=== PATIENT | female | born 2000 | race Caucasian/White ===

== ENCOUNTER 2019-12-14 16:30 | Inpatient (IN) | payer MEDICAID ==
[~2019-12-14] VITALS: Ht 152.4 cm; Wt 47.2 kg
[2019-12-14] MEDS ORDERED: IV NS 0.9% 1,000 ML BAG IV ONE ×2 (17:00→18:30)
--- NOTE | 2019-12-14 17:15 | NUR ---
ABELARDO FROM A [facility] TO ER BED 13. SLEEPING EASILY ARROUSABLLE.COOPERATIVE AND COMPLIANT. NOT IN RESP DISTRESS. BROUGHT IN FOR POSSIBLE OVERDOSE. PER EMS REPORT, PT WAS GIVEN NARCAN 2MG IV, REPORTS WAKING BUT WENT BACK TO SLEEP AGAIN. PT IS NOTED TACHYCARDIC UPON ASSESSMENT. CADEN LY WAS AT THE BEDSIDE FOR EVAL. ORDERS RECEIVED NOTED AND CARRIED OUT. IV LINE ESTABLISHED ON LFA 20G. BLOOD DRAWN AND GIVEN TO CHIEF COOK AT BEDSIDE. URINE COLLECTED AND SENT TO LAB
[2019-12-14 17:17] LABS: BASOPHILS % (AUTO) 0.2 % (0.0-2.0); HEMATOCRIT 46 % (33-45); HEMOGLOBIN 15.3 g/dL (11.5-14.8); LYMPHOCYTES # (AUTO) 1.6 /CMM (0.8-4.8); LYMPHOCYTES % (AUTO) 8.4 % (20.0-44.0); MEAN CORPUSCULAR HGB CONC 33 g/dl (31.0-36.0); MEAN CORPUSCULAR VOLUME 97 fL (82-100); MONOCYTES # (AUTO) 1.8 /CMM (0.1-1.30); MONOCYTES % (AUTO) 9.5 % (2.0-12.0); NEUTROPHILS # (AUTO) 15.2 /CMM (1.8-8.9); NEUTROPHILS % (AUTO) 81.9 % (43.0-81.0); PLATELET COUNT (AUTO) 463 /CMM (150-450); RED BLOOD CELL COUNT(AUTO) 4.75 MIL/uL (4.0-5.2); WHITE BLOOD COUNT (AUTO) 18.6 K/uL (4.3-11.0)
[2019-12-14 17:21] LABS: APPEARANCE,URINE Clear (CLEAR); BILIRUBIN,URINE SMALL (NEGATIVE); BLOOD, URINE Moderate Ery/uL (NEGATIVE); COLOR,URINE Yellow (YELLOW); KETONES,URINE Negative (NEGATIVE); LEUKOCYTE ESTERASE ,URINE Negative (NEGATIVE); NITRITE, URINE Negative (NEGATIVE); PROTEIN,URINE >=300 mg/dl (NEGATIVE); UGLUCOSE Negative (NEGATIVE); UROBILINOGEN,URINE 0.2 EU/dL (0.2)
[2019-12-14 17:55] LABS: ALANINE AMINOTRANSFERASE 29 U/L (12-78); ALKALINE PHOSPHATASE 73 U/L (46-116); ASPARTATE AMINOTRANSFERASE 56 U/L (15-37); BILIRUBIN,DIRECT 0.1 mg/dL (0.0-0.2); BILIRUBIN,TOTAL 0.2 mg/dL (0.2-1.0); CALCIUM, SERUM 8.5 mg/dL (8.5-10.1); CARBON DIOXIDE 22 mmol/L (21-32); CHLORIDE 96 mmol/L (98-107); CREATININE 1.8 mg/dL (0.6-1.3); GLUCOSE 64 mg/dL (74-106); POTASSIUM 5.7 mmol/L (3.5-5.1); SALICYLATE 2.9 mg/dL (2.8-20.0); SODIUM SERUM 133 mmol/L (136-145); TOTAL PROTEIN, SERUM 7.8 g/dL (6.4-8.2); UREA NITROGEN, BLOOD 20 mg/dL (7-18)
[2019-12-14 17:57] LABS: ACETAMINOPHEN < 2 ug/ml (10-30); ALCOHOL, BLOOD < 3 mg/dL (0-0)
[2019-12-14 18:04] LABS: BACTERIA,URINE Few /HPF (None Seen); RBC,URINE 0-2 /HPF (0-2); SQUAMOUS EPITHELIAL CELL,UR Few /HPF (None Seen); URINE AMORPHOUS URATE Many /HPF (None Seen); WBC,URINE 0-2 /HPF (0-3)
--- NOTE | 2019-12-14 18:28 | NUR ---
PT NOTED WITH BP OF 83/65 HR 125 O2 SAT 90% ON RA. CADEN LY MADE AWARE. ORDER RECEIVED TO GIVE ANOTHER LITER OF NS BOLUS X 1. PT ALSO PLACED ON O2 VIA NC @ 2LPM SATTING 98%.
[2019-12-14] MEDS ORDERED: ASPIRIN 325 MG TABLET PO ONE (19:30)
[2019-12-14 19:37] LABS: BAND % (MANUAL) 5 % (0.0-5.0); LYMPHOCYTES % (MANUAL) 7 % (16-48); MONOCYTES % (MANUAL) 11 % (0-11.0); NEUTROPHILS % (MANUAL) 77 (42-76)
[2019-12-14] MEDS ORDERED: ASPIRIN 325 MG TABLET ONE (20:02)
[2019-12-14] MEDS ORDERED: ONDANSETRON HCL/PF 4 MG/2 ML VIAL ONE (20:28)
[2019-12-14] MEDS ORDERED: ONDANSETRON HCL/PF - ER 4 MG/2 ML VIAL IV ONE (20:30)
--- NOTE | 2019-12-14 20:34 | NUR ---
PT HAD X1 EPISODE OF VOMMITING. MODERATE AMOUNT. FOOD CONTENT
[2019-12-14] MEDS ORDERED: ONDANSETRON HCL/PF 4 MG/2 ML VIAL IVP PRN (21:00)
[2019-12-14] MEDS ORDERED: MAG HYDROX/AL HYDROX/SIMETH 30 ML UDC PO PRN (21:00)
[2019-12-14] MEDS ORDERED: IV NS 0.9% 1,000 ML IV PRN (21:00)
[2019-12-14] MEDS ORDERED: Z GUARD REMEDY 2 OZ OINT TP PRN (21:00)
[2019-12-14] MEDS ORDERED: ACETAMINOPHEN 325 MG TABLET PO PRN (21:00)
--- NOTE | 2019-12-14 21:47 | NUR ---
report given to geronimo galan for ludwig.
[2019-12-14 22:00] VITALS: BP 95/78
--- NOTE | 2019-12-14 22:00 | NUR ---
PT TRANSPORTED TO UNIT ON [facility] EMT AND RN AT BEDSIDE W/ ACLS PROTOCOL. NAD NOTED DURING TRANSPORT.
[2019-12-14 22:47] LABS: SERUM AMMONIA 13 umol/L (11-32)
--- NOTE | 2019-12-14 23:03 | NUR ---
MS RN NOTE: Patient lactic acid is 3.3. Made Mary MERINO aware, Benjamín. Per MD, she will order antibiotic. She is just waiting for the procalcitonin result to determine what antibiotic to give. Per , no more IV fluids.
[2019-12-15] VITALS: BP 108/82
[2019-12-15] MEDS ORDERED: IV NS 0.9% 500 ML IV ONE
[2019-12-15] MEDS ORDERED: VANCOMYCIN 1 GM in IV D5W 250ml IV ONE (00:30)
[2019-12-15 00:37] VITALS: BP 95/78
[2019-12-15] MEDS ORDERED: PIPERACILLIN /TAZOBACTAM 3.375 G VIAL IV ONE ×2 (01:31→06:51)
[2019-12-15] MEDS ORDERED: VANCOMYCIN 1 GM VIAL ONE (01:31)
[2019-12-15] MEDS: ZOSYN IVPB 3.375 G in IV D5W 50ml IV SCH ×2 (01:35→06:56)
[2019-12-15 04:00] VITALS: BP 113/78
--- NOTE | 2019-12-15 06:30 | NUR ---
MS RN NOTE: Patient in bed sleeping comfortably. Patient on 2L oxygen via nasal canula. Patient is breathing well and in no apparent respiratory distress, no SOB. Safety precaution is in place, bed is in the lowest level, bed is locked, side rails x2 are up, and call light is within reach. Will Endorse to next shift.
[2019-12-15 07:13] LABS: BASOPHILS % (AUTO) 0.2 % (0.0-2.0); EOSINOPHILS % (AUTO) 0.1 % (0.0-6.0); HEMATOCRIT 39 % (33-45); LYMPHOCYTES # (AUTO) 3.2 /CMM (0.8-4.8); LYMPHOCYTES % (AUTO) 23.7 % (20.0-44.0); MEAN CORPUSCULAR HGB CONC 33 g/dl (31.0-36.0); MEAN CORPUSCULAR VOLUME 96 fL (82-100); MONOCYTES % (AUTO) 7.3 % (2.0-12.0); NEUTROPHILS # (AUTO) 9.3 /CMM (1.8-8.9); NEUTROPHILS % (AUTO) 68.7 % (43.0-81.0); PLATELET COUNT (AUTO) 305 /CMM (150-450); RED BLOOD CELL COUNT(AUTO) 4.07 MIL/uL (4.0-5.2); WHITE BLOOD COUNT (AUTO) 13.6 K/uL (4.3-11.0)
[2019-12-15 07:16] LABS: CALCIUM, SERUM 7.5 mg/dL (8.5-10.1); CREATININE 0.8 mg/dL (0.6-1.3); MAGNESIUM 1.9 mg/dL (1.8-2.4); PHOSPHORUS 3.9 mg/dL (2.5-4.9); POTASSIUM 4.3 mmol/L (3.5-5.1)
--- NOTE | 2019-12-15 07:30 | NUR ---
ms rn received on bed, awake,alert,orientedx3,patient is sleeping most of the time, denies pain at this time, no sob noted,will monitor patient.
[2019-12-15 07:52] LABS: THYROID STIMULATING HORMONE 2.112 uIU/mL (0.358-3.74)
[2019-12-15 08:00] VITALS: BP 111/76
--- NOTE | 2019-12-15 08:30 | NUR ---
ms rn patient asking for food, breakfast ordered amd served, no s/s of swallowing problem.
[2019-12-15] MEDS ORDERED: PANTOPRAZOLE 40 MG VIAL IV SCH (09:00)
[2019-12-15] MEDS ORDERED: ASPIRIN 81 MG TAB.CHEW PO SCH (09:00)
[2019-12-15] MEDS ORDERED: VANCOMYCIN 0.75 GM in IV D5W 250 ML IV SCH (10:00)
--- NOTE | 2019-12-15 11:35 | NUR ---
This SW attempted to meet with the patient. Patient asleep but easily arousable. Patient stated "I don't want to talk to no child welfare social worker". This SW to return at a later day/time to obtain information from this patient.
[2019-12-15 12:00] VITALS: BP 131/89
[2019-12-15] MEDS ORDERED: PIPERACILLIN /TAZOBACTAM 3.375 G in IV D5W 100 ML IV SCH (12:00)
--- NOTE | 2019-12-15 12:00 | NUR ---
ms rn was seen by cindy tamez/ nemo to be discharge today, social services manager was able to spoke w/ her but not cooperating.
[2019-12-15] MEDS ORDERED: LEVO750T21 PO (12:45)
--- NOTE | 2019-12-15 14:38 | NUR ---
This SW met with the patient at bedside. Patient reports "I'm not ready to be discharged." I want to go to a rehab. Patient is being discharged and SW to provide homeless resources in chart as patient "does not want to speak with this SW." Resources provided are: Substance Abuse resources provided included: [facility] Substance Abuse Self-Helpline ([facility]) ; CRI -HELP [address] [facility]. [place] [id number] ; [facility] [address] [facility] [address] ; [facility] [address] [facility] [phone] ; [facility] [address] [facility] [phone] ; [facility] [address] [facility] [address] ; [facility] [address] [facility] [phone] ; [facility] Helpline([facility] ; [facility] ; [facility] [place]; [facility] [place]; [facility] Star remy; [facility] [place]; [facility] [place]; [facility] [place]; [facility], [facility]. [place]; Alcoholics Anonymous -SFV; Dy-Lidh-Rexjnrl ; Marijuana Anonymous -SFV; Narcotics Anonymous www.na.org. Year-round shelters : [facility] [address] [place] [address] ; [facility] [address] [place] [address]; [facility] [address] [facility] [phone] Hygiene: [facility]: [address] [place] ; [facility] [address] [facility] [place] ; [facility] [address] [place] [address] . Food Resources: [place] [facility] at [facility]- [address] [place]; Meet Each Need wit Dignity ([facility]) [address] [facility] [place]; [facility] [place] [facility] [address] [facility]; [facility] [address] [place] [address] [place]. Mental Health resources provided: [facility] [address] [place] [address] ; [facility] [place] [address] [facility] [address], [place] [address] ; Tanika Savage [facility] [address] [place] [address] ; [facility] [address] [place], [place] [phone]
--- NOTE | 2019-12-15 16:00 | NUR ---
ms rn Melissa, case manger and social economist was there to spoke w/ patient, refusing to be discharge, resources available for her.
--- NOTE | 2019-12-15 16:40 | NUR ---
ms rn patient refused to sign discharge papers and refused to take pictures, crying now.
--- NOTE | 2019-12-15 16:45 | NUR ---
ms rn patient discharge crying, dont want to go, discharged patient w/ security, all needs attended, prescription given.
== END 2019-12-15 16:50 | disposition home or self-care (01) | DRG 812 ==
LOC: ER 16:40 → TELE 20:57 → EDBD 20:57
PROVIDERS: ADMIT Registered Nurse; ATTEND Hospitalist
DX: T43.621A Poisoning by amphetamines, accidental (unintentional), initial encounter (principal); A41.9 Sepsis, unspecified organism; G92 Toxic encephalopathy; I21.A1 Myocardial infarction type 2; R65.21 Severe sepsis with septic shock; J18.9 Pneumonia, unspecified organism; M62.82 Rhabdomyolysis; E87.2 Acidosis; E87.1 Hypo-osmolality and hyponatremia; Z59.0 Homelessness; E86.0 Dehydration; F15.10 Other stimulant abuse, uncomplicated; E87.5 Hyperkalemia; N17.0 Acute kidney failure with tubular necrosis; R91.8 Other nonspecific abnormal finding of lung field; I95.9 Hypotension, unspecified; Y92.89 Other specified places as the place of occurrence of the external cause; F19.10 Other psychoactive substance abuse, uncomplicated; R40.2142 Coma scale, eyes open, spontaneous, at arrival to emergency department; R40.2252 Coma scale, best verbal response, oriented, at arrival to emergency department; R40.2362 Coma scale, best motor response, obeys commands, at arrival to emergency department
CPT/HCPCS: 36415; 71045-TC; 80048-TC; 80061-TC; 80076-TC; 80305; 81000-TC; 82140-TC; 82550-TC; 83605-TC; 83735-TC; 84100-TC; 84443-TC; 84484-TC; 84703-TC; 85025-TC; 87081-TC; 87086-TC; 93307-TC; C9113; C9803-CS; G0378; G0480; J2405; J2543; J3370; J7030; J7040; J7060

== ENCOUNTER 2019-12-15 17:06 | Emergency (ER) | payer MEDICAID ==
[~2019-12-15] VITALS: Ht 152.4 cm; Wt 47.6 kg
[~2019-12-15 17:06] MED LIST: LEVO750T21 PO
--- NOTE | 2019-12-15 17:18 | NUR ---
CAME ON FOR SI WITH PLAN TO RUN INTO TRAFFIC. TO ER BED 13, HOOKED TO MONITOR, CHANGE TO HOSP GOWN, WARM BLANKET PROVIDED, PATIENT BREATHING EVEN AND UNLABORED. AWAITING MD ALEX. SITTER AT BEDSIDE FOR EVAL. SUICIDAL PRECAUTION APPLIED.
--- NOTE | 2019-12-15 17:23 | NUR ---
DR RICHARDOSN AT BEDSIDE
[2019-12-15 17:45] LABS: BASOPHILS # (AUTO) 0.1 /CMM (0.0-0.2); BASOPHILS % (AUTO) 0.5 % (0.0-2.0); EOSINOPHILS % (AUTO) 0.8 % (0.0-6.0); HEMATOCRIT 42 % (33-45); HEMOGLOBIN 13.9 g/dL (11.5-14.8); LYMPHOCYTES # (AUTO) 2.2 /CMM (0.8-4.8); LYMPHOCYTES % (AUTO) 21.4 % (20.0-44.0); MEAN CORPUSCULAR HGB CONC 33 g/dl (31.0-36.0); MEAN CORPUSCULAR VOLUME 97 fL (82-100); MONOCYTES # (AUTO) 0.6 /CMM (0.1-1.30); MONOCYTES % (AUTO) 6.2 % (2.0-12.0); NEUTROPHILS # (AUTO) 7.2 /CMM (1.8-8.9); NEUTROPHILS % (AUTO) 71.1 % (43.0-81.0); PLATELET COUNT (AUTO) 333 /CMM (150-450); WHITE BLOOD COUNT (AUTO) 10.2 K/uL (4.3-11.0)
[2019-12-15 17:45] LABS: APPEARANCE,URINE Clear (CLEAR); BILIRUBIN,URINE Negative (NEGATIVE); BLOOD, URINE Moderate Ery/uL (NEGATIVE); COLOR,URINE Yellow (YELLOW); KETONES,URINE Negative (NEGATIVE); LEUKOCYTE ESTERASE ,URINE Negative (NEGATIVE); NITRITE, URINE Negative (NEGATIVE); PROTEIN,URINE Negative (NEGATIVE); UGLUCOSE Negative (NEGATIVE); UROBILINOGEN,URINE 0.2 EU/dL (0.2)
[2019-12-15 17:57] LABS: CALCIUM, SERUM 8.4 mg/dL (8.5-10.1); CARBON DIOXIDE 30 mmol/L (21-32); CHLORIDE 104 mmol/L (98-107); CREATININE 0.9 mg/dL (0.6-1.3); GLUCOSE 97 mg/dL (74-106); POTASSIUM 3.7 mmol/L (3.5-5.1); SODIUM SERUM 140 mmol/L (136-145); UREA NITROGEN, BLOOD 10 mg/dL (7-18)
[2019-12-15 18:04] LABS: ALANINE AMINOTRANSFERASE 72 U/L (12-78); ALBUMIN 3.3 g/dL (3.4-5.0); ALKALINE PHOSPHATASE 65 U/L (46-116); ASPARTATE AMINOTRANSFERASE 145 U/L (15-37); BILIRUBIN,DIRECT 0.1 mg/dL (0.0-0.2); BILIRUBIN,TOTAL 0.3 mg/dL (0.2-1.0); TOTAL PROTEIN, SERUM 6.6 g/dL (6.4-8.2)
[2019-12-15 18:05] LABS: ACETAMINOPHEN < 10 ug/ml (10-30); ALCOHOL, BLOOD < 3 mg/dL (0-0); SALICYLATE 1.6 mg/dL (2.8-20.0)
[2019-12-15 18:18] LABS: BACTERIA,URINE Few /HPF (None Seen); WBC,URINE 0-2 /HPF (0-3)
[2019-12-15 18:19] LABS: SQUAMOUS EPITHELIAL CELL,UR Moderate /HPF (None Seen); URINE AMORPHOUS URATE Few /HPF (None Seen)
[2019-12-15 19:05] VITALS: BP 121/92
--- NOTE | 2019-12-15 19:35 | NUR ---
ASSUMED CARE FOR THIS PT. PT AAOX4, VSS, RESPIRATIONS EVEN AND UNLABORED ON RA W/ NAD NOTED. PT CONNECTED TO THE MONITOR AND POX. SUICIDE PRECAUTIONS OBSERVED. SITTER AT BEDSIDE FOR SAFETY.
--- NOTE | 2019-12-15 21:18 | NUR ---
PT ACCEPTED AT [facility] [address] KING [phone] EXT [phone]
--- NOTE | 2019-12-15 21:23 | NUR ---
[facility] 5134
--- NOTE | 2019-12-15 22:20 | NUR ---
REPORT GIVEN TO MELISSA RODRIGUEZ FOR [facility]
[2019-12-15] MEDS ORDERED: ACETAMINOPHEN ES 500 MG TABLET ONE (23:26)
[2019-12-15] MEDS: ACETAMINOPHEN ES 500 MG TABLET PO ONE (23:27)
--- NOTE | 2019-12-15 23:40 | NUR ---
REPORT GIVEN TO EMS, PT STABLE FOR TRANSFER TO [facility]
== END 2019-12-15 23:42 ==
LOC: ER 17:06
DX: R45.851 Suicidal ideations (principal); F19.10 Other psychoactive substance abuse, uncomplicated; I25.2 Old myocardial infarction; Z59.0 Homelessness; Z79.899 Other long term (current) drug therapy
CPT/HCPCS: 36415; 80048; 80076; 80305; 80307; 80329; 81001; 84484; 84702; 85025; 93005; 99285; G0480; 81000-TC

== ENCOUNTER 2021-06-05 20:30 | Emergency (ER) | payer MEDICAID ==
[~2021-06-05] VITALS: Ht 165.1 cm; Wt 52.2 kg
--- NOTE | 2021-06-05 20:40 | NUR ---
[id number] FROM THE STREETS C/O "S/I WITH PLAN TO JUMP OFF A BRIDGE". PATIENT ALERT ANDORIENTED X3. AMBULATORY WITH NON LABORED BREATHING BELONGINGS TAKEN AND PLACED IN GOWN.
--- NOTE | 2021-06-05 20:41 | NUR ---
SAFETY 1:[address] PT IN NO ACUTE DISTRESS AT THIS TIME.
--- NOTE | 2021-06-05 20:42 | NUR ---
URINE COLLECTED AND SENT TO LAB
--- NOTE | 2021-06-05 20:48 | NUR ---
er shelter monitor at bedside
[2021-06-05 21:06] LABS: BASOPHILS # (AUTO) 0.1 K/uL (0.0-0.2); BASOPHILS % (AUTO) 1.1 % (0.0-2.0); EOSINOPHILS % (AUTO) 1.9 % (0.0-6.0); HEMATOCRIT 38 % (33-45); HEMOGLOBIN 13.1 g/dL (11.5-14.8); LYMPHOCYTES % (AUTO) 34.7 % (20.0-44.0); MEAN CORPUSCULAR HGB CONC 34 g/dl (31.0-36.0); MEAN CORPUSCULAR VOLUME 87 fL (82-100); MONOCYTES # (AUTO) 0.7 K/uL (0.1-1.30); NEUTROPHILS # (AUTO) 4.7 K/uL (1.8-8.9); NEUTROPHILS % (AUTO) 54.3 % (43.0-81.0); PLATELET COUNT (AUTO) 405 K/uL (150-450); WHITE BLOOD COUNT (AUTO) 8.7 K/uL (4.3-11.0)
[2021-06-05 21:07] LABS: CALCIUM, SERUM 9.2 mg/dL (8.5-10.1); CARBON DIOXIDE 28 mmol/L (21-32); CHLORIDE 105 mmol/L (98-107); CREATININE 0.8 mg/dL (0.6-1.3); GLUCOSE 99 mg/dL (74-106); POTASSIUM 3.9 mmol/L (3.5-5.1); SODIUM SERUM 137 mmol/L (136-145); UREA NITROGEN, BLOOD 9 mg/dL (7-18)
[2021-06-05 21:12] LABS: ALANINE AMINOTRANSFERASE 36 U/L (12-78); ALBUMIN 3.8 g/dL (3.4-5.0); ALCOHOL, BLOOD 5 mg/dL (0-0); ALKALINE PHOSPHATASE 79 U/L (46-116); ASPARTATE AMINOTRANSFERASE 27 U/L (15-37); BILIRUBIN,DIRECT 0.1 mg/dL (0.0-0.2); BILIRUBIN,TOTAL 0.2 mg/dL (0.2-1.0); TOTAL PROTEIN, SERUM 7.8 g/dL (6.4-8.2)
[2021-06-05 21:15] LABS: ACETAMINOPHEN < 0 ug/ml (10-30)
[2021-06-05] MEDS ORDERED: CEFTRIAXONE 1 G VIAL ONE (21:28)
[2021-06-05] MEDS ORDERED: DOXYCYCLINE HYCLATE (100 MG) 100 MG TABLET ONE (21:28)
[2021-06-05] MEDS ORDERED: OLANZAPINE 5 MG TABLET ONE (21:29)
[2021-06-05] MEDS ORDERED: OLANZAPINE 5 MG TABLET PO ONE (21:30)
[2021-06-05] MEDS ORDERED: DOXYCYCLINE HYCLATE (100 MG) 100 MG TABLET PO ONE (21:30)
[2021-06-05] MEDS ORDERED: CEFTRIAXONE 1 G VIAL IM ONE (21:30)
[2021-06-05] MEDS ORDERED: LIDOCAINE 1% INJ 50 ML MDV IJ ONE (21:30)
[2021-06-05] MEDS ORDERED: LIDOCAINE /MPF 1% VIAL 5 ML VIAL ONE (21:32)
[2021-06-05 21:46] LABS: BILIRUBIN,URINE NEGATIVE (NEGATIVE); COLOR,URINE YELLOW (YELLOW); LEUKOCYTE ESTERASE ,URINE NEGATIVE (NEGATIVE); NITRITE, URINE NEGATIVE (NEGATIVE); PROTEIN,URINE NEGATIVE (NEGATIVE); UGLUCOSE NEGATIVE (NEGATIVE); UROBILINOGEN,URINE 0.2 EU/dL (0.2)
[2021-06-05 21:59] LABS: BACTERIA,URINE Few /HPF (None Seen); SQUAMOUS EPITHELIAL CELL,UR Moderate /HPF (None Seen)
--- NOTE | 2021-06-06 | NUR ---
PT PROVIDED WITH WARM BLANKET FOR COMFORT.
--- NOTE | 2021-06-06 04:00 | NUR ---
FAXED CLINICALS AND FACE SHEET TO [facility]
--- NOTE | 2021-06-06 05:19 | NUR ---
PER ART AT [facility] PT IS ACCPETED AT [facility] BY DR [facility] TRANSPORT[facility] WILL CHILD NURSE THE PATIENT AT 1100 # FOR REPORT: [phone]
--- NOTE | 2021-06-06 06:00 | NUR ---
REPORT GIVEN TO CHARBEL JUSTIN FOR [facility].
--- NOTE | 2021-06-06 06:28 | NUR ---
UPDATED ETA 1200
--- NOTE | 2021-06-06 06:55 | NUR ---
PT SLEEPING IN BED. RESPIRATIONS EVEN AND NONLABORED. ALL NEEDS MET AT THIS TIME. SAFETY 1:[address]
--- NOTE | 2021-06-06 08:45 | NUR ---
BREAKFAST PROVIDED, ATE 100%, TOLERATED WELL
[2021-06-06 11:45] VITALS: BP 121/80
--- NOTE | 2021-06-06 11:56 | NUR ---
PICKED UP BY [facility] [facility] IN STABLE CONDITION
== END 2021-06-06 11:57 ==
LOC: ER 20:32
DX: R45.851 Suicidal ideations (principal); F19.10 Other psychoactive substance abuse, uncomplicated; Z59.00 Homelessness unspecified; F10.10 Alcohol abuse, uncomplicated; Y90.0 Blood alcohol level of less than 20 mg/100 ml; F15.10 Other stimulant abuse, uncomplicated; N89.8 Other specified noninflammatory disorders of vagina; F16.10 Hallucinogen abuse, uncomplicated; Z20.822 Contact with and (suspected) exposure to COVID-19; F17.290 Nicotine dependence, other tobacco product, uncomplicated
CPT/HCPCS: 36415; 80048; 80076; 80143; 80307; 80320; 81001; 84703; 85025; 87426; 87491; 87591; 96372; 99285; 99406; C9803; J0696; J3490; G0480